=== PATIENT | female | born 1975 | race Caucasian/White ===

== ENCOUNTER 2017-02-01 21:51 | Emergency (ER) | payer MEDICAID ==
[~2017-02-01] VITALS: Ht 167.6 cm; Wt 65.0 kg
[2017-02-01 21:53] VITALS: Ht 167.6 cm; Wt 65.0 kg
[2017-02-02] MEDS ORDERED: IBUP-1542 PO (00:42)
--- NOTE | 2017-02-02 01:39 | ERD ---
ER Documentation Chief Complaint Date/Time DATE: 02/02/17 TIME: 01:37 Chief Complaint etoh intoxication HPI 41-year-old woman brought in by EMS off the streets of [place] for public intoxication, patient admits to having a history of alcohol abuse and has been drinking tonight. She denies suicidal homicidal ideation and suspect she has "cold" because of recent congestion and cough. She has had no fevers or chills , no vomiting or diarrhea, no chest pain or shortness of breath. Patient was transported here by EMS without further complications. ROS All systems reviewed and are negative except as per history of present illness. Medications Home Meds Active Scripts Ibuprofen* (Ibuprofen*) 600 Mg Tablet, 600 MG PO Q8 for PAIN AND/OR INFLAMMATION , #30 TAB Prov:AMANDA ONEIL MD 02/02/17 Allergies Allergies: Coded Allergies: No Known Allergy (Unverified , 02/01/17) PMhx/Soc Alcoholism History of Surgery: Yes (many surgeries, finger amputation, ect.) Anesthesia Reaction: No Hx Neurological Disorder: No Hx Respiratory Disorders: No Hx Cardiac Disorders: No Hx Psychiatric Problems: Yes (alcoholic) Hx Miscellaneous Medical Probl: No Hx Alcohol Use: Yes Hx Substance Use: No Hx Tobacco Use: Yes Smoking Status: Current every day smoker FmHx Family History: No diabetes Physical Exam Vitals Vital Signs Date Time Temp Pulse Resp B/P Pulse Ox O2 Delivery O2 Flow Rate FiO2 02/01/17 21:53 98.3 88 20 116/72 99 Physical Exam GENERAL: Well-developed, well-nourished, well-hydrated, in no apparent distress , appears intoxicated, afebrile HEENT: Moist mucous membranes, pink conjunctiva, no cervical spine tenderness or step-off deformities, no goiter, no jaundice or icterus, extraocular movements intact without pain. No submandibular induration, and no pharyngeal erythema NEURO: Appears intoxicated but is answering questions and following commands, no nystagmus, pupils equal round reactive to light, no focal deficits or facial asymmetry, sensation intact distally Strength 5/5 in upper and lower extremities bilaterally CARDIAC: Regular rate and rhythm, no murmurs rubs or gallops LUNGS: Clear bilaterally no wheezing crackles or stridor ABDOMEN: Soft nontender, no guarding, no rigidity, no rebound, no psoas sign no obturator sign. Normoactive bowel sounds SKIN: Warm and dry to touch, no abrasions, contusions, or hematomas, no lacerations, no ecchymosis, no target lesions, and without ulcers EXTREMITIES: No clubbing cyanosis or edema, calves are bilaterally symmetrical, no Homans sign, no popliteal cord sign. Distal pulses equal and bilateral PSYCH: Normal affect without agitation or irritability Procedures/MDM One AP view of the chest performed, read by me reveals no acute infiltrates, normal mediastinum, sharp costophrenic and cardiac borders, no air under the diaphragm. Otherwise unremarkable chest x-ray. Besides URI symptoms patient had no complaints, she was resting comfortably, vital signs were normal, as she was ambulatory without difficulty. Differential diagnoses considered, included but not limited to acute coronary syndrome, pulmonary embolism, aortic dissection, abdominal aortic aneurysm, sepsis, stroke, meningitis, encephalitis, pneumonia, appendicitis, cholecystitis , bowel obstruction, pyelonephritis, nephrolithiasis, cystitis, as well as metabolic, hematologic, and electrolyte abnormalities. As well as abscess, cellulitis, fractures, and dislocations. Patient feels much better at this time, and vital signs are normal, symptoms have improved. I did give strict instructions to return to the ED if symptoms continue or worsen, patient will otherwise follow-up with primary care physician. Patient understood instructions and agreed to plan. Departure Diagnosis: Primary Impression: Alcohol abuse Additional Impressions: Alcoholic intoxication Complication of substance-induced condition: uncomplicated Qualified Code: F10.120 - Alcoholic intoxication, uncomplicated URI (upper respiratory infection) URI type: acute nasopharyngitis (common cold) Qualified Code: J00 - Acute nasopharyngitis Condition: Good Patient Instructions: Alcohol Addiction, Uri, Viral, No Abx (Adult), Alcohol Abuse AMANDA ONEIL MD February 02, 2017 01:39
--- NOTE | 2017-02-02 02:37 | RADRPT ---
PROCEDURE: XR Chest. CLINICAL INDICATION: Cough. TECHNIQUE: Single frontal chest x-ray. COMPARISON: None. FINDINGS: The cardiomediastinal silhouette is unremarkable. There is no congestive heart failure.. No focal i nfiltrate is seen. There is no pleural effusion. There is no pneumothorax. The osseous structures are unremarkable. IMPRESSION: 1. No active disease. RPTAT: HMVK .Jersey Marie MD, Date Time Electronically viewed and signed by .Jersey Marie MD, MD on 02/02/2017 02:37 .K/
[2017-02-02 05:44] VITALS: BP 104/72; PULSE 98; RESP 18
== END 2017-02-02 05:45 | disposition home or self-care (01) ==
LOC: E/R 21:51
DX: F10.120 Alcohol abuse with intoxication, uncomplicated (principal); J00 Acute nasopharyngitis [common cold]; F17.210 Nicotine dependence, cigarettes, uncomplicated; R40.2142 Coma scale, eyes open, spontaneous, at arrival to emergency department; R40.2252 Coma scale, best verbal response, oriented, at arrival to emergency department; R40.2362 Coma scale, best motor response, obeys commands, at arrival to emergency department; R05 Cough
CPT/HCPCS: 71010; Z7502